=== PATIENT | male | born 1960 | race Caucasian/White ===

== ENCOUNTER 2019-04-30 10:16 | Emergency (ER) | payer BC, OTHER ==
[2019-04-30 10:42] VITALS: RESP 18; TEMP 97
--- NOTE | 2019-04-30 11:00 | ED ---
Lower Extremity Injury HPI - General Chief Complaint: Extremity Injury, Lower Stated Complaint: Fall Time Seen by Provider: 04/30/19 10:43 Source: patient, EMS Mode of arrival: EMS Limitations: no limitations - History of Present Illness Initial Comments: Patient is a 58-year-old male presenting to the emergency department via EMS for sudden right ankle pain x today. 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 Patient states he is unable to walk and has pain with palpation of the right Achilles. Patient denies any previous injuries of his right ankle or lower leg. With no movement of the ankle, patient's pain is 1/10. With right ankle flexion pain increases to 8/10. Patient denies hitting his head or any other injuries from his fall. Patient denies any other complaints at this time. - Related Data Previous Rx's Medication Instructions Recorded traMADol HCl [Ultram] 50 mg PO Q4H PRN #20 tab 05/17/14 Omeprazole [PriLOSEC] 20 mg PO AC-BRKFST #30 cap 05/24/14 Allergies Allergy/AdvReac Type Severity Reaction Status Date / Time Sulfa (Sulfonamide Allergy Mild Unknown Verified 04/30/19 10:42 Antibiotics) Review of Systems ROS Statement: Those systems with pertinent positive or pertinent negative responses have been documented in the HPI. ROS Other: All systems not noted in ROS Statement are negative. Past Medical History Past Medical History: No Reported History History of Any Multi-Drug Resistant Organisms: None Reported Past Surgical History: Orthopedic Surgery, Tonsillectomy Additional Past Surgical History / Comment(s): knee surgery Past Anesthesia/Blood Transfusion Reactions: No Reported Reaction Past Psychological History: No Psychological Hx Reported Smoking Status: Current every day smoker Past Alcohol Use History: None Reported Past Drug Use History: None Reported General Exam - General Exam Comments Initial Comments: GENERAL: Well-appearing, well-nourished and in no acute distress. HEAD: Atraumatic, normocephalic. EYES: Pupils equal round and reactive to light, extraocular movements intact, sclera anicteric, conjunctiva are normal. ENT: TMs normal, nares patent, oropharynx clear without exudates. Moist mucous membranes. NECK: Normal range of motion, supple without lymphadenopathy or JVD. LUNGS: Breath sounds clear to auscultation bilaterally and equal. No wheezes rales or rhonchi. HEART: Regular rate and rhythm without murmurs, rubs or gallops. ABDOMEN: Soft, nontender, normoactive bowel sounds. No guarding, no rebound. No masses appreciated. : Deferred EXTREMITIES: Pain with palpation of the posterior aspect of the right ankle along Achilles. There is a deformity of the right Achilles with no tension. Patient has positive Walters test on the right side. Pain with ankle flexion. Strength is not tested at this time secondary to pain. Patient is not able to bear weight. NEUROLOGICAL: Cranial nerves II through XII grossly intact. Normal speech. PSYCH: Normal mood, normal affect. SKIN: Warm, Dry, normal turgor, no rashes or lesions noted. Limitations: no limitations Course Vital Signs 04/30/19 04/30/19 10:40 12:54 Temperature 97 F L Pulse Rate 76 65 Respiratory 18 18 Rate Blood Pressure 125/73 139/83 O2 Sat by Pulse 98 96 Oximetry Procedures - Orthopedic Splinting/Casting Injury #1 Side: right (Right ankle/Achilles) Lower Extremity Injury Location: ankle (Achilles) Lower Extremity Immobilizer: posterior splint, Ryan wrap Medical Decision Making - Medical Decision Making Patient is a 58-year-old male arriving via EMS with sudden right ankle pain x today. Patient states he went to take off running at work to shut off a boiler when he felt a pop in his right ankle and fell instantly to the ground. Patient was unable to bear weight. On exam patient has notable deformity of the Achilles with no tension, and a positive Walters test. Patient has increase in pain with ankle flexion. X-ray reveals no acute bony abnormalities. Patient was splinted in a short leg splint with slight plantar flexion of the right ankle. It was discussed with patient to remain nonweightbearing on the lower right extremity and to follow up with orthopedics tomorrow morning. Patient was in agreement with this plan. Case discussed with Dr. Vásquez. Return parameters were discussed with the patient he verbalized understanding. Disposition Clinical Impression: Rupture of right Achilles tendon Disposition: HOME SELF-CARE Condition: Stable Instructions (If sedation given, give patient instructions): Achilles Tendon Rupture (ED) Additional Instructions: Please return to the Emergency Department if symptoms worsen or any other concerns. No weightbearing of the right lower extremity. Use Motrin for pain relief. Keep splint in place until you follow up with orthopedics tomorrow. Is patient prescribed a controlled substance at d/c from ED?: No Referrals: None,Stated [Primary Care Provider] - 1-2 days Kevin Mora MD [STAFF PHYSICIAN] - 1-2 days
--- NOTE | 2019-04-30 12:04 | XR ---
EXAMINATION TYPE: XR ankle complete RT , 3 VIEWS DATE OF EXAM ORDERED: 04/30/2019 HISTORY: Pain, poss achilles rupture. COMPARISON: None. FINDINGS: No fracture, dislocation or ankle joint effusion is seen. Note is made of a plantar calcan eal spur. IMPRESSION: NO ACUTE OSSEOUS LESION.
[2019-04-30 12:55] VITALS: BP 139/83; PULSE 65
== END 2019-04-30 12:55 | disposition home or self-care (01) ==
LOC: EC 10:16
DX: S86.011A Strain of right Achilles tendon, initial encounter (principal); F17.200 Nicotine dependence, unspecified, uncomplicated; Z88.2 Allergy status to sulfonamides; X58.XXXA Exposure to other specified factors, initial encounter; Y92.69 Other specified industrial and construction area as the place of occurrence of the external cause; Y99.0 Civilian activity done for income or pay
CPT/HCPCS: 29515; 99283

== ENCOUNTER 2023-10-30 21:02 | Inpatient (IN) | payer BC, OTHER ==
--- NOTE | 2023-10-30 21:40 | ED ---
General Adult HPI - General Chief complaint: Abdominal Pain Stated complaint: Constipation Time Seen by Provider: 10/30/23 21:20 Source: patient Mode of arrival: ambulatory Limitations: no limitations - History of Present Illness Initial comments: Dictation was produced using [employer] dictation software. please excuse any grammatical, word or spelling errors. Chief Complaint: 63-year-old male with no known comorbidities presents to the ER for abdominal pain History of Present Illness: Patient is 63-year-old male presents emergency department for abdominal pain. Patient states that he had had symptoms for the last 48-72 hours. States that the pain is in his suprapubic area and right lower quadrant. He has not had any passage of stool and gas for the last 24 hours. Denies any history of appendectomy. He states he had a fever yesterday. He did have some nausea that resolved. States it is constant and nonradiating. The ROS documented in this emergency department record has been reviewed and confirmed by me. Those systems with pertinent positive or negative responses have been documented in the HPI. All other systems are other negative and/or noncontributory. - Related Data Previous Rx's Medication Instructions Recorded traMADol HCl [Ultram] 50 mg PO Q4H PRN #20 tab 05/17/14 Omeprazole [PriLOSEC] 20 mg PO AC-BRKFST #30 cap 05/24/14 Allergies Allergy/AdvReac Type Severity Reaction Status Date / Time Sulfa (Sulfonamide Allergy Mild Unknown Verified 10/30/23 21:14 Antibiotics) Review of Systems ROS Statement: Those systems with pertinent positive or pertinent negative responses have been documented in the HPI. ROS Other: All systems not noted in ROS Statement are negative. Past Medical History Past Medical History: No Reported History History of Any Multi-Drug Resistant Organisms: None Reported Past Surgical History: Orthopedic Surgery, Tonsillectomy Additional Past Surgical History / Comment(s): knee surgery Past Anesthesia/Blood Transfusion Reactions: No Reported Reaction Past Psychological History: No Psychological Hx Reported Smoking Status: Current every day smoker Past Alcohol Use History: None Reported Past Drug Use History: None Reported General Exam - General Exam Comments Initial Comments: PHYSICAL EXAM: General Impression: Alert and oriented x3, not in acute distress HEENT: Normocephalic atraumatic, extra-ocular movements intact, pupils equal and reactive to light bilaterally, mucous membranes moist. Cardiovascular: Heart regular rate and rhythm Chest: Able to complete full sentences, no retractions, no tachypnea Abdomen: abdomen soft, tenderness at McBurney's point, non-distended, no organomegaly Musculoskeletal: Pulses present and equal in all extremities, no peripheral edema Motor: no focal deficits noted Neurological: CN II-XII grossly intact, no focal motor or sensory deficits noted Skin: Intact with no visualized rashes Psych: Normal affect and mood Limitations: no limitations Course Vital Signs 10/30/23 21:11 Temperature 98.2 F Pulse Rate 83 Respiratory 18 Rate Blood Pressure 152/96 O2 Sat by Pulse 96 Oximetry Medical Decision Making - Medical Decision Making Was pt. sent in by a medical professional or institution (, PA, SILVER SOLDERER, urgent care, hospital, or fpc...) When possible be specific @ -No Did you speak to anyone other than the patient for history (EMS, parent, family, police, friend...)? What history was obtained from this source @ -No Did you review nursing and triage notes (agree or disagree)? Why? @ -I reviewed and agree with nursing and triage notes Were old charts reviewed (outside hosp., previous admission, EMS record, old EKG, old radiological studies, urgent care reports/EKG's, fpc records)? Report findings @ -No old charts were reviewed Differential Diagnosis (chest pain, altered mental status, abdominal pain women, abdominal pain men, vaginal bleeding, musculoskeletal, weakness, fever, dyspnea, syncope, headache, dizziness, GI bleed, back pain, seizure, CVA, palpatations, mental health)? @ -Differential Abdominal Pain Men: Appendicitis, cholecystitis, diverticulosis, ischemic bowel, pancreatitis, hepatitis, UTI, gastroenteritis, AAA, incarcerated hernia, bowel obstruction, constipation, inflammatory bowel, hepatitis, peptic ulcer disease, splenic infarction, perforated viscus, testicular torsion, this is not meant to be an all-inclusive list EKG interpreted by me (3pts min.). @ -None done X-rays interpreted by me (1pt min.). @ -None done CT interpreted by me (1pt min.). @ -Computed tomography scan shows acute appendicitis U/S interpreted by me (1pt. min.). @ -None done What testing was considered but not performed or refused? (CT, X-rays, U/S, labs)? Why? @ -None What meds were considered but not given or refused? Why? @ -None Did you discuss the management of the patient with other professionals (professionals i.e. , PA, SILVER SOLDERER, lab, RT, psych nurse, social worker assistant, dust mixer, teacher, cra officer, caseworker)? Give summary @ -No Was smoking cessation discussed for >3mins.? @ -No Was critical care preformed (if so, how long)? @ -No Were there social determinants of health that impacted care today? How? (Homelessness, low income, unemployed, alcoholism, drug addiction, transportation, low edu. Level, literacy, decrease access to med. care, snf, rehab)? @ -No Was there de-escalation of care discussed even if they declined (Discuss DNR or withdrawal of care, Hospice)? DNR status @ -No What co-morbidities impacted this encounter? (DM, HTN, Smoking, COPD, CAD, Cancer, CVA, ARF, Chemo, Hep., AIDS, mental health diagnosis, sleep apnea, morbid obesity)? @ -None Was patient admitted / discharged? Hospital course, mention meds given and route, prescriptions, significant lab abnormalities, going to OR and other pertinent info. @ -63 yo male presents with days of abdominal pain. He has pain in the right lower quadrant. Vital signs stable. Computed tomography scan shows acute appendicitis. Laboratory evaluation shows leukocytosis 24.9. Rest of labs with acceptable limits. Started on Zosyn. Will be admitted to general surgery. Case discussed with on-call general surgeon, Dr. Quiles who is willing to accept patients care. Undiagnosed new problem with uncertain prognosis? @ -No Drug Therapy requiring intensive monitoring for toxicity (Heparin, Nitro, Insulin, Cardizem)? @ -No Were any procedures done? @ -No Diagnosis/symptom? Acute, or Chronic, or Acute on Chronic? Uncomplicated (without systemic symptoms) or Complicated (systemic symptoms)? @ -acute appendicitis Side effects of treatment? @ -No Exacerbation, Progression, or Severe Exacerbation? @ -No Poses a threat to life or bodily function? How? (Chest pain, [place], [place], pneumonia, PE, COPD, DKA, ARF, appy, cholecystitis, CVA, Diverticulitis, Homicidal, Suicidal, threat to staff... and all critical care pts) @ -yes - Lab Data Result diagrams: 10/30/23 21:45 10/30/23 21:45 Lab Results 10/30/23 10/30/23 Range/Units 21:45 21:45 WBC 24.9 H (3.8-10.6) k/uL RBC 5.49 (4.30-5.90) m/uL Hgb 16.4 (13.0-17.5) gm/dL Hct 48.9 (39.0-53.0) % MCV 89.0 (80.0-100.0) fL MCH 29.8 (25.0-35.0) pg MCHC 33.5 (31.0-37.0) g/dL RDW 13.0 (11.5-15.5) % Plt Count 300 (150-450) k/uL MPV 7.5 Neutrophils % 80 % Lymphocytes % 10 % Monocytes % 8 % Eosinophils % 1 % Basophils % 0 % Neutrophils # 19.8 H (1.3-7.7) k/uL Lymphocytes # 2.5 (1.0-4.8) k/uL Monocytes # 2.0 H (0-1.0) k/uL Eosinophils # 0.1 (0-0.7) k/uL Basophils # 0.1 (0-0.2) k/uL Sodium 140 (137-145) mmol/L Potassium 4.1 (3.5-5.1) mmol/L Chloride 103 (98-107) mmol/L Carbon Dioxide 29 (22-30) mmol/L Anion Gap 8 mmol/L BUN 20 (9-20) mg/dL Creatinine 0.92 (0.66-1.25) mg/dL Est GFR (CKD-EPI)AfAm >90 (>60 ml/min/1.73 sqM) Est GFR (CKD-EPI)NonAf 88 (>60 ml/min/1.73 sqM) Glucose 123 H (74-99) mg/dL Calcium 9.8 (8.4-10.2) mg/dL Total Bilirubin 0.6 (0.2-1.3) mg/dL AST 25 (17-59) U/L ALT 29 (4-49) U/L Alkaline Phosphatase 92 (38-126) U/L Total Protein 7.6 (6.3-8.2) g/dL Albumin 4.4 (3.5-5.0) g/dL Disposition Clinical Impression: Acute appendicitis Disposition: ADMITTED IP TO THIS HOSP Condition: Fair Referrals: None,Stated [Primary Care Provider] - 1-2 days Decision Time: 22:51
--- NOTE | 2023-10-30 22:02 | CT ---
EXAMINATION TYPE: CT abdomen pelvis w con DATE OF EXAM: 10/30/2023 COMPARISON: 05/27/2014 HISTORY: abdominal pain, constipation CT DLP: 900.5 mGycm CONTRAST: CT scan of the abdomen and pelvis is performed without Oral Contrast and with IV Contrast, patient in jected with 100 mL of Isovue 300. FINDINGS: LUNG BASES-: No visible nodule. No infiltrate. LIVER/GB: No calcified gallstones. No space occupying hepatic lesion. Biliary tree is of normal ca liber. PANCREAS: No inflammation. No distinct mass. SPLEEN: No splenic enlargement. No lesion seen. ADRENALS: No nodule. No thickening. KIDNEYS/BLADDER: No hydronephrosis. No nephrolithiasis. No distinct renal mass. Urinary bladder g rossly unremarkable. BOWEL: Dilated appendix measuring 1.4 cm with periappendiceal inflammatory change compatible with acu te appendicitis. No evidence of abscess or perforation. Colonic ileus noted of the right hemicolon. T he remainder of the colon and small bowel are normal caliber. Normal bowel caliber. No inflammation . GENITAL ORGANS: No gross abnormality. LYMPH NODES: No greater than 1cm abdominal or pelvic lymph nodes are appreciated. AORTA: No significant abnormality. OSSEOUS STRUCTURES: No significant abnormality is seen. OTHER: No significant additional abnormality is seen. IMPRESSION: 1. Dilated appendix measuring 1.4 cm with periappendiceal inflammatory change compatible with acute a ppendicitis. No evidence of abscess or perforation.
[2023-10-30 22:05] LABS: ALT 29 U/L (4-49); AST 25 U/L (17-59); African American GFR (CKD) >90 (>60 ml/min/1.73 sqM); Albumin 4.4 g/dL (3.5-5.0); Alkaline Phosphatase 92 U/L (38-126); Anion Gap 8 mmol/L; Blood Urea Nitrogen 20 mg/dL (9-20); Calcium 9.8 mg/dL (8.4-10.2); Carbon Dioxide 29 mmol/L (22-30); Chloride 103 mmol/L (98-107); Glucose 123 mg/dL (74-99); Non-African American GFR(CKD) 88 (>60 ml/min/1.73 sqM); Potassium 4.1 mmol/L (3.5-5.1); Sodium 140 mmol/L (137-145); Total Bilirubin 0.6 mg/dL (0.2-1.3); Total Protein 7.6 g/dL (6.3-8.2)
[2023-10-30 22:16] LABS: Basophils # (A) 0.1 k/uL (0-0.2); Basophils % (A) 0 %; Eosinophils # (A) 0.1 k/uL (0-0.7); Eosinophils % (A) 1 %; HCT 48.9 % (39.0-53.0); HGB 16.4 gm/dL (13.0-17.5); Lymphocytes # (A) 2.5 k/uL (1.0-4.8); Lymphocytes % (A) 10 %; MCH 29.8 pg (25.0-35.0); MCHC 33.5 g/dL (31.0-37.0); Mean Platelet Volume 7.5; Monocytes % (A) 8 %; Neutrophils # (A) 19.8 k/uL (1.3-7.7); Neutrophils % (A) 80 %; Platelet Count 300 k/uL (150-450); RBC 5.49 m/uL (4.30-5.90); WBC 24.9 k/uL (3.8-10.6)
[2023-10-30] MEDS ORDERED: ACETAMINOPHEN TAB 325 MG TAB PO PRN (22:46)
[2023-10-30] MEDS ORDERED: NALOXONE 0.4 MG/ML 1 ML VIAL IV PRN (22:46)
[2023-10-30] MEDS: SODIUM CHLORIDE 0.9% 1,000 ML IV SCH (22:57)
[2023-10-30 23:32] LABS: Amorphous Sediment,Urine Rare /hpf; Appearance,Urine Clear (Clear); Bilirubin,Urine Negative (Negative); Blood,Urine Small (Negative); Color,Urine Light Yellow; Glucose,Urine (UA) Negative (Negative); Hyaline Casts,Urine 3 /lpf (0-2); Ketones,Urine Negative (Negative); Leukocyte Esterase,Urine Negative (Negative); Mucus,Urine Rare /hpf; Nitrite,Urine Negative (Negative); Protein,Urine Trace (Negative); RBC,Urine 13 /hpf (0-5); Urobilinogen,Urine <2.0 mg/dL (<2.0); WBC,Urine 1 /hpf (0-5)
[2023-10-30] MEDS: MORPHINE SULFATE 4 MG/ML SYRINGE IV PRN (23:34)
[2023-10-30 23:42] LABS: INR 0.9 (<1.2); Partial Thromboplastin Time 25.3 sec (22.0-30.0); Prothrombin Time 10.2 sec (10.0-12.5)
[2023-10-30 23:59] LABS: Specific Gravity,Urine >1.050 (1.001-1.035)
--- NOTE | 2023-10-31 00:04 | XR ---
EXAM: XR Chest, 1 View CLINICAL HISTORY: ITS.REASON XR Reason: preop TECHNIQUE: Frontal view of the chest. COMPARISON: No relevant prior studies available. FINDINGS: Lungs: Unremarkable. No consolidation. Pleural space: Unremarkable. No pneumothorax. Heart: Unremarkable. No cardiomegaly. Mediastinum: Unremarkable. Normal mediastinal contour. Bones/joints: Unremarkable. No acute fracture. IMPRESSION: Normal chest x-ray.
[2023-10-31] MEDS ORDERED: HYDROmorphone 1 MG/ML 1 ML SYRINGE IVP STA (00:26)
[2023-10-31] MEDS: PIPERACILLIN-TAZOBACTAM 3.375 GM in SODIUM CHLORIDE 0.9% 100 ML IVPB SCH ×4 (00:36→23:44)
--- NOTE | 2023-10-31 01:24 | P.GSHP ---
History of Present Illness H&P Date: 10/31/23 Chief Complaint: RLQ abdominal pain Patient is 63-year-old male presents emergency department for abdominal pain. Patient states that he had had symptoms for the last 48-72 hours. States that the pain is in his suprapubic area and right lower quadrant. He has not had any passage of stool and gas for the last 24 hours. Denies any history of appendectomy. He states he had a fever yesterday. He did have some nausea that resolved. States it is constant and nonradiating - Cardiovascular Cardiovascular: Denies chest pain, Denies irregular heart beat - Respiratory Respiratory: Denies congestion, Denies cough - Gastrointestinal Gastrointestinal: Reports abdominal pain, Reports loss of appetite, Reports nausea, Reports vomiting, Denies bloating, Denies BRBPR, Denies change in bowel habits, Denies coffee ground emesis, Denies diarrhea, Denies heartburn, Denies hematemesis, Denies hematochezia, Denies jaundice, Denies melena Past Medical History Past Medical History: No Reported History History of Any Multi-Drug Resistant Organisms: None Reported Past Surgical History: Orthopedic Surgery, Tonsillectomy Additional Past Surgical History / Comment(s): knee surgery Past Anesthesia/Blood Transfusion Reactions: No Reported Reaction Past Psychological History: No Psychological Hx Reported Smoking Status: Current every day smoker Past Alcohol Use History: None Reported Past Drug Use History: None Reported Medications and Allergies Home Medications Medication Instructions Recorded Confirmed Type traMADol HCl [Ultram] 50 mg PO Q4H PRN #20 tab 05/17/14 05/23/14 Rx Omeprazole [PriLOSEC] 20 mg PO AC-BRKFST #30 cap 05/24/14 Rx Allergies Allergy/AdvReac Type Severity Reaction Status Date / Time Sulfa (Sulfonamide Allergy Mild Unknown Verified 10/30/23 21:14 Antibiotics) Surgical - Exam Vital Signs Temp Pulse Resp BP Pulse Ox 98.2 F 83 18 152/96 96 10/30/23 21:11 10/30/23 21:11 10/30/23 21:11 10/30/23 21:11 10/30/23 21:11 - General well developed - Eyes PERRL, no icteric, no deviation - Respiratory normal expansion, normal respiratory effort absent: wheezing - Cardiovascular Rhythm: regular Heart Sounds: normal: S1, S2 - Abdomen Abdomen: soft, tender, bowel sounds, no guarding, no rigid, no rebound, no distended Results - Labs 10/30/23 21:45 10/30/23 21:45 Abnormal Lab Results - Last 24 Hours (Table) 10/30/23 10/30/23 10/30/23 Range/Units 21:45 21:45 21:45 WBC 24.9 H (3.8-10.6) k/uL Neutrophils # 19.8 H (1.3-7.7) k/uL Monocytes # 2.0 H (0-1.0) k/uL Glucose 123 H (74-99) mg/dL Ur Specific [place] >1.050 H (1.001-1.035) Urine Protein Trace H (Negative) Urine Blood Small H (Negative) Urine RBC 13 H (0-5) /hpf Amorphous Sediment Rare H (None) /hpf Hyaline Casts 3 H (0-2) /lpf Urine Mucus Rare H (None) /hpf Diabetes panel 10/30/23 Range/Units 21:45 Sodium 140 (137-145) mmol/L Potassium 4.1 (3.5-5.1) mmol/L Chloride 103 (98-107) mmol/L Carbon Dioxide 29 (22-30) mmol/L BUN 20 (9-20) mg/dL Creatinine 0.92 (0.66-1.25) mg/dL Glucose 123 H (74-99) mg/dL Calcium 9.8 (8.4-10.2) mg/dL AST 25 (17-59) U/L ALT 29 (4-49) U/L Alkaline Phosphatase 92 (38-126) U/L Total Protein 7.6 (6.3-8.2) g/dL Albumin 4.4 (3.5-5.0) g/dL Calcium panel 10/30/23 Range/Units 21:45 Calcium 9.8 (8.4-10.2) mg/dL Albumin 4.4 (3.5-5.0) g/dL Pituitary panel 10/30/23 Range/Units 21:45 Sodium 140 (137-145) mmol/L Potassium 4.1 (3.5-5.1) mmol/L Chloride 103 (98-107) mmol/L Carbon Dioxide 29 (22-30) mmol/L BUN 20 (9-20) mg/dL Creatinine 0.92 (0.66-1.25) mg/dL Glucose 123 H (74-99) mg/dL Calcium 9.8 (8.4-10.2) mg/dL Adrenal panel 10/30/23 Range/Units 21:45 Sodium 140 (137-145) mmol/L Potassium 4.1 (3.5-5.1) mmol/L Chloride 103 (98-107) mmol/L Carbon Dioxide 29 (22-30) mmol/L BUN 20 (9-20) mg/dL Creatinine 0.92 (0.66-1.25) mg/dL Glucose 123 H (74-99) mg/dL Calcium 9.8 (8.4-10.2) mg/dL Total Bilirubin 0.6 (0.2-1.3) mg/dL AST 25 (17-59) U/L ALT 29 (4-49) U/L Alkaline Phosphatase 92 (38-126) U/L Total Protein 7.6 (6.3-8.2) g/dL Albumin 4.4 (3.5-5.0) g/dL Assessment and Plan (1) Acute appendicitis Current Visit: Yes Status: Acute Code(s): K35.80 - UNSPECIFIED ACUTE APPENDICITIS SNOMED Code(s): 38110980 (2) Gastroenteritis Current Visit: No Status: Acute Code(s): K52.9 - NONINFECTIVE GASTROENTERITIS AND COLITIS, UNSPECIFIED SNOMED Code(s): 14372280 (3) Vomiting Current Visit: No Status: Acute Code(s): R11.10 - VOMITING, UNSPECIFIED SNOMED Code(s): 030468300 Plan: admit to hospital its after midnight and patint had dinner plan OR in AM with new surgical team no perforation IV antibiotics Hydration pain managment dvt prophylaxis Surgery in AM
[2023-10-31] MEDS: MORPHINE SULFATE 4 MG/ML SYRINGE IV PRN (05:56)
[2023-10-31] MEDS: SODIUM CHLORIDE 0.9% 1,000 ML IV SCH ×3 (06:00→23:44)
[2023-10-31] MEDS ORDERED: HYDROmorphone 0.5 MG/0.5 ML SYRINGE IVP STA (09:17)
[2023-10-31] MEDS ORDERED: HEPARIN SODIUM,PORCINE 5,000 UNIT/ML 1 ML VIAL SQ ONE (09:51)
[2023-10-31] MEDS ORDERED: PHENYLEPHRINE 10 MG/ML VIAL ONE (09:55)
[2023-10-31] MEDS ORDERED: IV FLUID CONTINUATION 1,000 ML IV ONE (09:55)
[2023-10-31] MEDS ORDERED: ONDANSETRON 4 MG/2 ML VIAL ONE (09:55)
[2023-10-31] MEDS ORDERED: PROPOFOL 10 MG/ML 20 ML VIAL IV ONE (09:55)
[2023-10-31] MEDS ORDERED: SUCCINYLCHOLINE CHLORIDE 200 MG/10 ML VIAL IV ONE (09:55)
[2023-10-31] MEDS ORDERED: KETOROLAC 15 MG/ML 1 ML VIAL ONE (09:55)
[2023-10-31] MEDS ORDERED: fentaNYL (PF) 50 MCG/ML 2 ML AMP ONE (09:55)
[2023-10-31] MEDS ORDERED: MIDAZOLAM 2 MG/2 ML VIAL ONE (09:55)
[2023-10-31] MEDS ORDERED: BUPIVACAINE (PF) 0.25% 30 ML VIAL SQ ONE (10:16)
[2023-10-31] MEDS ORDERED: LACTATED RINGERS 1,000 ML IV ONE ×2 (10:46→11:00)
[2023-10-31] MEDS ORDERED: ONDANSETRON 4 MG/2 ML VIAL IVP PRN (11:00)
[2023-10-31] MEDS ORDERED: NALOXONE 0.4 MG/ML 1 ML VIAL IV PRN (11:00)
[2023-10-31] MEDS ORDERED: ACETAMINOPHEN TAB 325 MG TAB PO PRN (11:00)
[2023-10-31] MEDS ORDERED: HYDROmorphone 1 MG/ML 1 ML SYRINGE IVP PRN (11:00)
[2023-10-31] MEDS ORDERED: HYDROmorphone 0.5 MG/0.5 ML SYRINGE IVP PRN (11:00)
--- NOTE | 2023-10-31 11:00 | P.OP ---
Date of Procedure: 10/31/23 Preoperative Diagnosis: Acute appendicitis Postoperative Diagnosis: Acute appendicitis Procedure(s) Performed: Laparoscopic appendectomy Anesthesia: ANDREIA Surgeon: Irving Sibley Pathology: other (Appendix) Condition: stable Disposition: PACU Description of Procedure: The patient's placed on the operating table in the supine position. The patient received general anesthesia. The abdomen was prepped and draped in the usual sterile fashion. The skin was anesthetized 1% local Xylocaine at the trocar sites. Using an 11 blade the skin was incised at the umbilicus. The umbilicus was grasped with a Eliz clamp and then a Veress needle was placed into the peritoneal cavity. Position of the Veress needle was confirmed with positive drop test. After adequate insufflation a 5 mm trocar was placed into the peritoneal cavity. The abdomen was further insufflated. And then the laparoscope was placed in the peritoneal cavity. Next a 5 mm trocar was placed in the midline suprapubic position. And then a 10 mm trocar was placed in the midline epigastric position. The patient was rotated with the right side up and in Trendelenburg. The appendix was visualized. The appendix appeared to be inflamed. The appendix was grasped and then using the Harmonic scissors the mesoappendix was divided. A PDS Endoloop was then placed around the base of the appendix. And then the appendix was divided using Harmonic scissors. The appendix was placed into an Endo Catch and brought out through the 10 mm trocar site. The abdomen was irrigated. There is no bleeding seen. The trochars withdrawn. The skin was closed interrupted 3-0 Monocryl suture. Dermabond dressing was applied. Patient was sent to recovery room in stable condition.
[2023-10-31] MEDS: KETOROLAC 15 MG/ML 1 ML VIAL IVP SCH ×3 (15:24→23:50)
[2023-10-31] MEDS: DOCUSATE 100 MG CAP PO SCH (20:12)
[2023-11-01] MEDS: KETOROLAC 15 MG/ML 1 ML VIAL IVP SCH ×4 (05:57→23:51)
[2023-11-01] MEDS: SODIUM CHLORIDE 0.9% 1,000 ML IV SCH ×3 (06:03→20:15)
[2023-11-01] MEDS: PIPERACILLIN-TAZOBACTAM 3.375 GM in SODIUM CHLORIDE 0.9% 100 ML IVPB SCH ×3 (08:07→23:51)
[2023-11-01] MEDS: DOCUSATE 100 MG CAP PO SCH ×2 (08:08→20:13)
[2023-11-01] MEDS: ENOXAPARIN 40 MG/0.4 ML SYRINGE SQ SCH (08:08)
[2023-11-01 08:30] VITALS: RESP 16
[2023-11-01] MEDS ORDERED: HYDROcodone/APAP 5-325MG 1 EACH TAB PO PRN (08:37)
[2023-11-01 09:07] LABS: Basophils # (A) 0.1 k/uL (0-0.2); Basophils % (A) 0 %; Eosinophils # (A) 0.1 k/uL (0-0.7); Eosinophils % (A) 1 %; HCT 46.7 % (39.0-53.0); HGB 15.4 gm/dL (13.0-17.5); Lymphocytes # (A) 1.5 k/uL (1.0-4.8); Lymphocytes % (A) 9 %; MCH 29.8 pg (25.0-35.0); MCV 90.5 fL (80.0-100.0); Monocytes # (A) 1.1 k/uL (0-1.0); Monocytes % (A) 7 %; Neutrophils # (A) 13.4 k/uL (1.3-7.7); Neutrophils % (A) 82 %; Platelet Count 248 k/uL (150-450); RBC 5.15 m/uL (4.30-5.90); RDW 12.8 % (11.5-15.5); WBC 16.4 k/uL (3.8-10.6)
[2023-11-01] MEDS: NEXIUM 20 MG PO SCH (12:25)
--- NOTE | 2023-11-01 13:19 | XR ---
EXAMINATION TYPE: XR abdomen 1V DATE OF EXAM: 11/01/2023 COMPARISON: 05/17/2014 INDICATION: Day 1 postop appendix TECHNIQUE: Single view abdomen supine view FINDINGS: There are prominent small bowel loops within the abdomen. Air is throughout the colon. No mass effect is evident. Psoas margins are normal. No organomegaly is present. IMPRESSION: 1. Prominent air-filled small bowel loops. Correlate for ileus. Follow-up is recommended.
--- NOTE | 2023-11-01 13:50 | P.PN ---
Subjective Progress Note Date: 11/01/23 CHIEF COMPLAINT: Acute appendicitis HISTORY OF PRESENT ILLNESS: Patient is postop day #1 status post laparoscopic appendectomy. Patient has had vomiting to the night and this morning. Oral intake is very minimal. His abdomen is distended. He did have episode of diarrhea yesterday. But since then has had no flatus or bowel movement. He did have a low-grade temp of 100.1 last night. WBC is down from 24.9-16.4 Hgb 15.4 abdominal x-ray shows prominent air-filled small bowel loops. Correlate for i leus. PHYSICAL EXAM: VITAL SIGNS: Reviewed. GENERAL: Well-developed in no acute distress. ABDOMEN: Distended. Nontender. Incision sites clean dry and intact NEUROLOGIC: Alert and oriented. Cranial nerves II through XII grossly intact. ASSESSMENT: 1. Acute appendicitis status post laparoscopic appendectomy 2. Postoperative ileus can be an expected finding PLAN: -Add Reglan 10 mg IV scheduled -Downgrade diet to full liquids -Encourage patient to ambulate -Encourage patient to use incentive spirometer -Continue pain management -Continue antibiotics -continue IV fluids -Add GI prophylaxis Pepcid and DVT prophylaxis Lovenox Physician Waiter/Waitress Captain note has been reviewed by physician. Signing provider agrees with the documented findings, assessment, and plan of care. Objective - Vital Signs Vital signs: Vital Signs Temp 98.3 F 11/01/23 07:00 Pulse 59 L 11/01/23 07:00 Resp 16 11/01/23 07:00 BP 168/83 11/01/23 07:00 Pulse Ox 96 11/01/23 07:00 FiO2 Intake & Output 10/31/23 11/01/23 11/01/23 18:59 06:59 18:59 Intake Total 900 Output Total 5 Balance 895 Weight 74.843 kg Intake: IV 900 Output: Estimated Blood Loss 5 Other: # Voids 1 2 - Labs CBC & Chem 7: 11/01/23 08:48 10/30/23 21:45 Labs: Abnormal Lab Results - Last 24 Hours (Table) 11/01/23 Range/Units 08:48 WBC 16.4 H (3.8-10.6) k/uL Neutrophils # 13.4 H (1.3-7.7) k/uL Monocytes # 1.1 H (0-1.0) k/uL Microbiology - Last 24 Hours (Table) 10/30/23 21:45 Blood Culture - Preliminary Blood 10/30/23 22:00 Blood Culture - Preliminary Blood
[2023-11-01] MEDS: METOCLOPRAMIDE 5 MG/ML 2 ML VIAL IVP SCH ×3 (14:51→23:52)
[2023-11-01] MEDS: FAMOTIDINE 20 MG/2 ML VIAL IV SCH (14:51)
--- NOTE | 2023-11-01 22:14 | P.CONS ---
History of Present Illness - Reason for Consult Consult date: 11/01/23 Medical management - Chief Complaint Abdominal plain / Status post laparoscopic appendectomy - History of Present Illness Patient is a 63-year-old male with a known history of duodenal ulcer and cu rrently everyday smoker presents to ER with complaints of abdominal pain. Patient states that he started having sharp abdominal pain mainly in the right lower quadrant and suprapubic region. Patient states that he was at his brother's office at the time. He thought he may be having constipation and take laxatives at home. Pain started on Wednesday morning. He was also having nausea vomiting episodes on Wednesday. Presents to ER for further evaluation. CT of the abdomen pelvis showed dilated appendix measuring 1.4 cm with periappendiceal inflammatory change compatible with acute appendicitis. No evidence of abscess or perforation. Chest x-ray showed normal chest x-ray. EKG showed normal sinus rhythm. Laboratory data showed WBC 24.9 hemoglobin 16.4 and platelets 300. BUN 20 and creatinine 0.92 and blood sugar is 123. Urinalysis showed increased specific gravity and trace protein and small blood leukocyte esterase negative and WBCs 1. Patient underwent laparoscopic appendectomy. SBP went up to 170s today and patient is also complaining of nausea and episodes of vomiting this morning. Review of Systems Constitutional: Patient denies any fever or chills . no Generalized weakness. Abdomen: Patient does have nausea and vomiting. Improved abd. pain Cardiovascular: Patient denies any chest pain or short of breath no palpitations. Respiratory: patient denied any cough . no sputum production. No shortness of breath Neurologic: Patient denied any numbness or tingling or headache. Musculoskeletal: Patient denies any complaints of joint swelling or deformity. Skin: Negative Psychiatric: Negative Endocrine: No heat or cold intolerance. No recent weight gain. Genitourinary: No dysuria or hematuria. All other 14 point ROS negative except the above Past Medical History Past Medical History: No Reported History History of Any Multi-Drug Resistant Organisms: None Reported Past Surgical History: Orthopedic Surgery, Tonsillectomy Additional Past Surgical History / Comment(s): knee surgery Past Anesthesia/Blood Transfusion Reactions: No Reported Reaction Past Psychological History: No Psychological Hx Reported Smoking Status: Current every day smoker Past Alcohol Use History: None Reported Past Drug Use History: None Reported Medications and Allergies Home Medications Medication Instructions Recorded Confirmed Type No Known Home Medications 10/31/23 10/31/23 History Allergies Allergy/AdvReac Type Severity Reaction Status Date / Time Sulfa (Sulfonamide Allergy Mild Unknown Verified 10/31/23 11:04 Antibiotics) Physical Exam Vitals: Vital Signs Temp Pulse Resp BP Pulse Ox 11/01/23 07:00 98.3 F 59 L 16 168/83 96 11/01/23 02:13 98.1 F 69 15 159/88 95 10/31/23 19:34 100.1 F H 88 16 118/74 91 L 10/31/23 15:30 79 18 137/74 95 10/31/23 14:30 88 17 134/78 95 10/31/23 13:30 98 F 90 16 123/73 94 L 10/31/23 13:00 78 17 153/74 97 10/31/23 12:30 98 18 165/80 93 L 10/31/23 12:15 72 17 120/70 96 10/31/23 12:00 73 17 134/70 94 L 10/31/23 11:45 97.9 F 78 17 136/78 97 10/31/23 11:21 70 16 111/72 95 10/31/23 11:15 69 16 118/68 94 L 10/31/23 11:00 70 16 116/70 95 10/31/23 10:45 97.7 F 83 20 139/78 92 L Intake and Output 10/31/23 11/01/23 11/01/23 22:59 06:59 14:59 Other: # Voids 1 2 PHYSICAL EXAMINATION: Patient is lying in the bed comfortably, no acute distress, awake alert and oriented.. HEENT: Normocephalic. Neck is supple. Pupils reactive. Nostrils clear. Oral cavity is moist. Neck reveals no JVD, carotid bruits, or thyromegaly. CHEST EXAMINATION: Trachea is central. Symmetrical expansion. Lung leary clear to auscultation and percussion. CARDIAC: Normal S1, S2 with no gallops. No murmurs ABDOMEN: Soft. Bowel sounds diminished. Nontender. No organomegaly. No abdominal bruits. Extremities: reveal no edema. No clubbing or cyanosis Neurologically awake, alert, oriented x3 with well-coordinated movements. No focal deficits noted Skin: No rash or skin lesions. Psychiatric: Coperative. Nonsuicidal, Musculoskeletal: No joint swelling or deformity. Normal range of motion. Results CBC & Chem 7: 11/01/23 08:48 10/30/23 21:45 Labs: Abnormal Lab Results - Last 24 Hours (Table) 11/01/23 Range/Units 08:48 WBC 16.4 H (3.8-10.6) k/uL Neutrophils # 13.4 H (1.3-7.7) k/uL Monocytes # 1.1 H (0-1.0) k/uL Assessment and Plan Assessment: Acute appendicitis status post laparoscopic appendectomy postoperative day 1 Leukocytosis Nausea and vomiting likely due to postoperative ileus Elevated blood pressure due to pain and nausea History of duodenal ulcer respiratory EGD several years ago. On Nexium at home DVT prophylaxis GI prophylaxis Plan: Patient will be continued on IV hydration. Nothing by mouth until nausea improves. Symptomatic management for nausea and vomiting. Abdominal x-ray will be ordered Encourage incentive spirometry and ambulation Continue with antibiotics in the form of Zosyn. Blood cultures negative so far. Continue with GI and DVT prophylaxis. Continue to monitor blood pressure closely and add will add antihypertensives as needed. Further recommendations based on clinical course. Thank you for the consult. Time with Patient: Greater than 30
[2023-11-02] MEDS: KETOROLAC 15 MG/ML 1 ML VIAL IVP SCH ×2 (00:06→05:48)
[2023-11-02] MEDS: SODIUM CHLORIDE 0.9% 1,000 ML IV SCH (05:06)
[2023-11-02] MEDS: NEXIUM 20 MG PO SCH (05:47)
[2023-11-02] MEDS: METOCLOPRAMIDE 5 MG/ML 2 ML VIAL IVP SCH (05:48)
[2023-11-02 09:08] VITALS: BP 169/80; PULSE 81
[2023-11-02 10:14] LABS: HCT 43.3 % (39.6-50.0); HGB 14.5 g/dL (13.0-17.0); MCH 29.4 pg (27.0-32.0); MCHC 33.5 g/dL (32.0-37.0); MCV 87.8 FL (80.0-97.0); Mean Platelet Volume 9.6 FL (9.5-12.2); NRBC Per 100 WBC 0 X 10*3/uL (0.00-0.01); Platelet Count 228 X 10*3/uL (140-440); RBC 4.93 X 10*6/uL (4.40-5.60); WBC 18.31 X 10*3/uL (4.50-10.00)
[2023-11-02] MEDS: PIPERACILLIN-TAZOBACTAM 3.375 GM in SODIUM CHLORIDE 0.9% 100 ML IVPB SCH (10:29)
[2023-11-02] MEDS: DOCUSATE 100 MG CAP PO SCH (10:30)
[2023-11-02] MEDS: FAMOTIDINE 20 MG/2 ML VIAL IV SCH (10:31)
[2023-11-02] MEDS: ENOXAPARIN 40 MG/0.4 ML SYRINGE SQ SCH (10:31)
[2023-11-02 10:55] LABS: Basophils # (A) 0.04 X 10*3/uL (0.00-0.10); Basophils % (A) 0.2 %; Eosinophils # (A) 0.25 X 10*3/uL (0.04-0.35); Eosinophils % (A) 1.4 %; Lymphocytes # (A) 1.38 X 10*3/uL (0.90-5.00); Lymphocytes % (A) 7.5 %; Monocytes # (A) 2.18 X 10*3/uL (0.20-1.00); Monocytes % (A) 11.9 %; Neutrophils # (A) 14.37 X 10*3/uL (1.80-7.70); Neutrophils % (A) 78.5 %; RBC Morphology Normal (Normal)
--- NOTE | 2023-11-02 11:13 | P.DS ---
Providers Date of admission: 10/30/23 22:46 Expected date of discharge: 11/02/23 Attending physician: Black Quiles MD Consults: 10/31/23 11:02 Consult Physician Routine Consulting Provider: Fifi Ray Consult Reason/Comments: Medical management Do you want consulting provider notified?: Yes 11/01/23 07:46 Consult Physician Routine Consulting Provider: Irving Sibley Consult Reason/Comments: appendicitis Do you want consulting provider notified?: Already Contacted Primary care physician: Stated None Hospital Course: Discharge diagnosis 1. Acute appendicitis status post laparoscopic appendectomy 2. Postoperative ileus, can be an expected finding 3. Leukocytosis Hospital course This is a 63-year-old male who presented with right lower quadrant abdominal pa in. Computed tomography scan had shown dilated appendix measuring 1.4 cm with appendiceal inflammatory changes compatible with acute appendicitis. Patient is status post laparoscopic appendectomy. He did develop a postoperative ileus. He is now having bowel movements. He is tolerating diet. He has been up and ambulating. He is afebrile. He does have evidence of leukocytosis. White count did increase from his 16.4-18.3. Patient was informed of the elevated white count and that Dr. Sibley recommended the patient remains in hospital for IV antibiotics. Patient is adamant that he be discharged today. He has pulled out his IV and already called for his ride home. He is feeling better and reports that he'll take antibiotic pills at home. Patient will be discharged with oral antibiotics. Patient is stable. Please refer to chart for any further details. Physician Billboard Mechanic note has been reviewed by physician. Signing provider agrees with the documented findings, assessment, and plan of care. Patient Condition at Discharge: Stable Plan - Discharge Summary Discharge Rx Participant: No New Discharge Prescriptions: New metroNIDAZOLE [Flagyl] 500 mg PO TID 10 Days #30 tab Levofloxacin [Levaquin] 500 mg PO DAILY 10 Days #10 tab Ibuprofen [Motrin] 600 mg PO Q8HR PRN #30 tab PRN Reason: Pain HYDROcodone/APAP 5-325MG [[place] 5-325] 1 tab PO Q6HR PRN 3 Days #12 tab PRN Reason: Pain Docusate [Colace] 100 mg PO BID #30 capsule Discharge Medication List Docusate [Colace] 100 mg PO BID #30 capsule 11/02/23 [Rx] HYDROcodone/APAP 5-325MG [[place] 5-325] 1 tab PO Q6HR PRN 3 Days #12 tab 11/02/23 [Rx] Ibuprofen [Motrin] 600 mg PO Q8HR PRN #30 tab 11/02/23 [Rx] Levofloxacin [Levaquin] 500 mg PO DAILY 10 Days #10 tab 11/02/23 [Rx] metroNIDAZOLE [Flagyl] 500 mg PO TID 10 Days #30 tab 11/02/23 [Rx] Follow up Appointment(s)/Referral(s): None,Stated [Primary Care Provider] - 1-2 days Irving Sibley MD [STAFF PHYSICIAN] - 1 Week Activity/Diet/Wound Care/Special Instructions: No driving while taking [place] No lifting over 10 pounds Shower daily. No soaking or tub baths for 2 weeks Very light activity until you are reevaluated at your follow up appointment with your surgeon Discharge/Stand Alone Forms: Area PCPs Discharge Disposition: HOME SELF-CARE
[2023-11-02 11:14] VITALS: TEMP 98.2
[2023-11-02 13:46] LABS: BUN/Creat Ratio 13.18 Ratio (12.00-20.00); Blood Urea Nitrogen 14.5 mg/dL (9.0-27.0); Calcium 8.2 mg/dL (8.7-10.3); Carbon Dioxide 25.5 mmol/L (21.6-31.8); Chloride 100 mmol/L (96-109); Glucose 110 mg/dL (70-110); Potassium 4.1 mmol/L (3.5-5.5); Sodium 136 mmol/L (135-145)
--- NOTE | 2023-11-03 05:42 | P.PN ---
Subjective Progress Note Date: 11/02/23 - Reason for Consult Consult date: 11/01/23 Medical management - Chief Complaint Abdominal plain / Status post laparoscopic appendectomy - History of Present Illness Patient is a 63-year-old male with a known history of duodenal ulcer and currently everyday smoker presents to ER with complaints of abdominal pain. Patient states that he started having sharp abdominal pain mainly in the right lower quadrant and suprapubic region. Patient states that he was at his brother's office at the time. He thought he may be having constipation and take laxatives at home. Pain started on Wednesday morning. He was also having nausea vomiting episodes on Wednesday. Presents to ER for further evaluation. CT of the abdomen pelvis showed dilated appendix measuring 1.4 cm with periappendiceal inflammatory change compatible with acute appendicitis. No evidence of abscess or perforation. Chest x-ray showed normal chest x-ray. EKG showed normal sinus rhythm. Laboratory data showed WBC 24.9 hemoglobin 16.4 and platelets 300. BUN 20 and creatinine 0.92 and blood sugar is 123. Urinalysis showed increased specific gravity and trace protein and small blood leukocyte esterase negative and WBCs 1. Patient underwent laparoscopic appendectomy. SBP went up to 170s today and patient is also complaining of nausea and episodes of vomiting this morning. 11/02/2023 Patient is seen in follow-up this morning status post appendectomy and reports to feeling well and would like to go home. Patient removed his IV and reports planning on being discharged today. Patient did have a elevated white count although has been trending down since admission and would recommend following up with repeat labs in the outpatient setting. Patient continued on antibiotics and will continue on oral antibiotics on discharge. Patient to follow-up with general surgery in the outpatient setting. Patient reports does not have a primary care provider and resources provided to establish with 1. Review of systems: Constitutional: No reports of fatigue, fever, or chills Cardiovascular: No reports of chest pain or palpitations Respiratory: No reports of shortness of breath or cough GI: No reports of nausea, vomiting, or diarrhea : No reports of dysuria or retention Neurovascular: No reports of weakness or numbness All medications have been reviewed PHYSICAL EXAMINATION: Patient is lying in the bed comfortably, no acute distress, awake alert and oriented.. HEENT: Normocephalic. Neck is supple. Pupils reactive. Nostrils clear. Oral cavity is moist. Neck reveals no JVD, carotid bruits, or thyromegaly. CHEST EXAMINATION: Trachea is central. Symmetrical expansion. Lung leary clear to auscultation and percussion. CARDIAC: Normal S1, S2 with no gallops. No murmurs ABDOMEN: Soft. Bowel sounds diminished. Nontender. No organomegaly. No abdominal bruits. Mid abdominal surgical sites are dry and intact with glue noted with no surrounding redness or drainage Extremities: reveal no edema. No clubbing or cyanosis Neurologically awake, alert, oriented x3 with well-coordinated movements. No focal deficits noted Skin: No rash or skin lesions. Psychiatric: Cooperative. Non-suicidal, Musculoskeletal: No joint swelling or deformity. Normal range of motion. Assessment: Acute appendicitis status post laparoscopic appendectomy postoperative day 2 Leukocytosis secondary to above Nausea and vomiting likely due to postoperative ileus, improved Elevated blood pressure due to pain and nausea History of duodenal ulcer respiratory EGD several years ago. On Nexium at home DVT prophylaxis GI prophylaxis Plan: Patient will be continued on IV hydration. Nausea has improved and tolerating diet Patient with continued mildly elevated white count and currently at 18 maintained on antibiotics. Patient did have a low-grade temp of 99 and will continue antibiotics recommend outpatient follow-up with repeat labs in the next few days as patient is adamant he is leaving today and reports to feeling fine. Resources provided on discharge as well to establish with a primary care provider and patient has been instructed to follow-up with surgery as scheduled Encourage incentive spirometry and and increased ambulation. Patient reports has been up and walking Patient reports had a bowel movement last night and is passing gas Continue with antibiotics in the form of Zosyn. Transition to oral antibiotics on discharge. Blood cultures remain negative Continue with GI and DVT prophylaxis. We will continue to follow with general surgery during hospitalization. Thank you kindly for this consultation. The impression and plan of care has been dictated by Chelsea Odom, Nurse Practitioner as directed. Dr. Yuliana MD I have performed a history and examination and MDM of this patient, discussed the same with the dictator, and agree with the dictator's assessment and plan as written ,documented as a scribe. Based on total visit time, I have performed more than 50% of the visit. Objective - Vital Signs Vital signs: Vital Signs Temp 98.2 F 11/02/23 10:56 Pulse 81 11/02/23 07:00 Resp 16 11/02/23 07:00 BP 169/80 11/02/23 07:00 Pulse Ox 96 11/02/23 07:00 FiO2 Intake & Output 11/02/23 11/02/23 11/03/23 06:59 18:59 06:59 Intake Total 240 Balance 240 Intake: Oral 240 Other: # Voids 4 # Bowel Movements 2 - Labs CBC & Chem 7: 11/02/23 05:58 11/02/23 05:58 Labs: Abnormal Lab Results - Last 24 Hours (Table) 11/02/23 11/02/23 Range/Units 05:58 05:58 WBC 18.31 H (4.50-10.00) X 10*3/uL Immature Gran # 0.09 H (0.00-0.04) X 10*3/uL Neutrophils # 14.37 H (1.80-7.70) X 10*3/uL Monocytes # 2.18 H (0.20-1.00) X 10*3/uL Calcium 8.2 L (8.7-10.3) mg/dL Microbiology - Last 24 Hours (Table) 10/30/23 21:45 Blood Culture - Preliminary Blood 10/30/23 22:00 Blood Culture - Preliminary Blood
== END 2023-11-02 12:30 | disposition home or self-care (01) | DRG 398 ==
LOC: EC 21:02 → 5NMEDONC 22:46 → 6NMEDSUR 10-31 00:30
PROVIDERS: ADMIT Colon & Rectal Surgery; ATTEND Colon & Rectal Surgery
PROC: 0DTJ4ZZ Resection of Appendix, Percutaneous Endoscopic Approach (ICD-10-PCS; principal; 2023-10-31 10:00)
DX: K35.80 Unspecified acute appendicitis (principal); K56.7 Ileus, unspecified; R03.0 Elevated blood-pressure reading, without diagnosis of hypertension; D72.829 Elevated white blood cell count, unspecified; Z87.11 Personal history of peptic ulcer disease; Z28.311 Partially vaccinated for COVID-19; Z28.21 Immunization not carried out because of patient refusal; K52.9 Noninfective gastroenteritis and colitis, unspecified; F17.200 Nicotine dependence, unspecified, uncomplicated; Z88.2 Allergy status to sulfonamides; Z79.899 Other long term (current) drug therapy
CPT/HCPCS: 36415; 71045; 74018; 74177; 80048; 80053; 81001; 85025; 85610; 85730; 87040; 88304; 93005; 96361; 96365; 96366; 96375; 99285